=== PATIENT | female | born 1975 ===

== ENCOUNTER 2019-03-18 09:25 | Emergency (ER) | payer BC ==
[2019-03-18 09:54] VITALS: BP 117/74
--- NOTE | 2019-03-18 10:20 | UC ---
Skin Complaint HPI - HPI Summary HPI Summary: 43-year-old woman comes in with a chief complaint fungal infections of her fingernails. This all started back in May 2018. It's affecting all the finger nails. Toenails are not involved. Patient has used [id number] nail fungal treatment and also has used tea tree oil without any improvement except in the right ring finger which has improved. - History of Current Complaint Chief Complaint: UCSkin Time Seen by Provider: 03/18/19 09:43 Stated Complaint: FINGERS NAILBED COMPLAINT Hx Last Menstrual Period: 03/02/19 Pain Intensity: 5 - Allergy/Home Medications Allergies/Adverse Reactions: Allergies Allergy/AdvReac Type Severity Reaction Status Date / Time No Known Allergies Allergy Verified 03/18/19 09:43 Home Medications: Home Medications Ascorbic Acid TAB* [Vitamin C TAB*] 1,000 mg PO TID 03/18/19 [History Confirmed 03/18/19] Flax Seed 1 dose PO DAILY 03/18/19 [History Confirmed 03/18/19] Otc Nail Fungus Tx 1 applic TOPICAL DAILY 03/18/19 [History] Vitamin B12, D And E 1 dose PO DAILY 03/18/19 [History Confirmed 03/18/19] PMH/Surg Hx/FS Hx/Imm Hx Previously Healthy: Yes - DENIES HEPATITIS HX - Surgical History Surgical History: Yes Surgery Procedure, Year, and Place: tubal, c section x 2 - Family History Known Family History: Positive: Non-Contributory - Social History Alcohol Use: Occasionally Substance Use Type: None Smoking Status (MU): Former Smoker Review of Systems All Other Systems Reviewed And Are Negative: Yes Constitutional: Positive: Negative Skin: Positive: Other - SEE HPI Eyes: Positive: Negative ENT: Positive: Negative Respiratory: Positive: Negative Cardiovascular: Positive: Negative Gastrointestinal: Positive: Negative Motor: Positive: Negative Neurovascular: Positive: Negative Musculoskeletal: Positive: Negative Neurological: Positive: Negative Psychological: Positive: Negative Is Patient Immunocompromised?: No Physical Exam Triage Information Reviewed: Yes Appearance: Well-Appearing, No Pain Distress, Well-Nourished Vital Signs: Initial Vital Signs Temp 98.9 F 03/18/19 09:49 Pulse 94 03/18/19 09:49 Resp 18 03/18/19 09:49 BP 117/74 03/18/19 09:49 Pulse Ox 99 03/18/19 09:49 Vital Signs Reviewed: Yes Eye Exam: Normal Eyes: Positive: Conjunctiva Clear Neck: Positive: Supple Respiratory: Positive: No respiratory distress Musculoskeletal: Positive: Strength Intact, ROM Intact Neurological: Positive: Alert, Muscle Tone Normal Psychological: Positive: Age Appropriate Behavior Skin: Positive: Other - The fingernails of both hands show signs of fungal infection except for the right ring finger. There is no drainage or streaking. Course/Dx - Course Course Of Treatment: Patient has been failing on [id number] antifungal for months. She does not have the name of the medication she was using. We discussed using a prescription topical versus oral treatment with terbinafine. Patient prefers to use the oral medication. She reports she recently was screen for hepatitis and it was negative and she declines another screen for hepatitis today. We will check liver function tests today. I let her know that the liver functions to be rechecked in 6 weeks. We also discussed side effects such as changes in smell or taste or any kind of jaundice or feeling ill she needed to get reevaluated again right away and get her liver functions rechecked. Patient does not have a primary care physician so I gave her the physician referral phone number and also gave her a dermatology referral. - Diagnoses Provider Diagnosis: Onychomycosis Discharge - Sign-Out/Discharge Documenting (check all that apply): Patient Departure All imaging exams completed and their final reports reviewed: No Studies - Discharge Plan Condition: Stable Disposition: HOME Prescriptions: Terbinafine HCl 250 mg PO DAILY #42 tablet Patient Education Materials: [place] (ED) Referrals: [facility] [place] [facility]FERR[facility] [Outside] Neal Todd MD [Medical Doctor] - Additional Instructions: FOLLOW UP WITH YOUR PRIMARY CARE DOCTOR OR DERMATOLOGY. BECAUSE TERBINAFINE CAN CAUSE LIVER DAMAGE, GET RECHECKED RIGHT AWAY WITH ANY SIGNS OF LIVER PROBLEMS (JAUNDICE, CHANGES IN TASTE OR SMELL, YOU FEEL ILL) AND GET YOUR LIVER FUNCTION BLOOD LEVELS RECHECKED IN 6 WEEKS (04/29/19). GET REEVALUATED SOONER IF WORSE; JAUNDICE, CHANGES IN TASTE OR SMELL, YOU FEEL ILL OR ANY QUESTIONS OR CONCERNS. - Billing Disposition and Condition Condition: STABLE Disposition: Home
[2019-03-18 19:26] LABS: Albumin 4.3 g/dL (3.2-5.2); Albumin/Globulin Ratio 1.7 (1-3); Calcium 9.4 mg/dL (8.6-10.3); EGFR African American 86.8 (>60); EGFR Non-African American 71.8 (>60); Globulin 2.6 g/dL (2-4); Potassium 4.9 mmol/L (3.5-5.0); Total Bilirubin 0.4 mg/dL (0.2-1.0); Total Protein 6.9 g/dL (6.4-8.9)
== END 2019-03-18 10:38 | disposition home or self-care (01) ==
LOC: UCCORT 09:25
DX: B35.1 Tinea unguium (principal); Z87.891 Personal history of nicotine dependence
CPT/HCPCS: 36415; 80053; 99212; G0463